=== PATIENT | male | born 1955 | race Caucasian/White ===

== ENCOUNTER → 2018-06-20 | Outpatient (CLI) | payer MEDICARE ==
[~2018-06-20] MED LIST: DIOVAN HCT 1601 EAC1 PO; DIOVAN HCT 3201 EACH PO; LISINOPRIL-HCT1 EACH PO
--- NOTE | 2018-06-20 13:42 | Diagnostic Imaging Report ---
Exam: Cervical spine complete History: Neck pain Comparison: None. Findings: The cervical spine is visualized from the skull base to the bottom of T1 on the lateral radiograph. No acute, displaced fracture or subluxation. Soft tissue, ligamentous, and spinal cord abnormalities cannot be excluded on the basis of plain radiography. Osseous fusion of the C5 and C6 vertebral bodies. C4-C5 and C6-C7 disc space narrowing, endplate sclerosis, and marginal disc osteophyte complexes. Remaining intervertebral disc spaces are comparatively well-maintained. Atlantoaxial interval is within normal limits. Prevertebral soft tissues are of normal thickness. Mild bilateral narrowing of the C4-5 foramina is suspected on the oblique radiographs. Neural foramina are otherwise patent as seen on the oblique radiographs. Partially visualized lung apices are well aerated. Impression: No acute osseous abnormalities. Osseous fusion of the C5 and C6 vertebral bodies with moderate degenerative disc disease of C4-5 and C6-7. Mild bilateral C4-5 foraminal stenosis may be further evaluated by MRI of the cervical spine there is clinical concern for radiculopathy. Signed by: Dr. Fausto Mckeon M.D. on 06/20/2018 1:39 PM
== END ==
LOC: RAD 12:35
DX: M54.2 Cervicalgia (principal)
CPT/HCPCS: 72050

== ENCOUNTER → 2018-06-22 | Outpatient (CLI) | payer MEDICARE, BC ==
--- NOTE | 2018-06-22 15:41 | Diagnostic Imaging Report ---
MRI SPINE CERVICAL WO HISTORY: Neck pain COMPARISON: Cervical spine radiographs 06/20/2018 TECHNIQUE: Sagittal T1, sagittal T2, sagittal inversion recovery, axial T2, axial GRE, and axial T1 weighted MR images of the cervical spine were obtained without intravenous contrast. DISCUSSION: Alignment: Straightening of the cervical lordosis. No scoliosis. Vertebrae: The C5 and C6 vertebral bodies are fused. No definite evidence for fractures, or neoplasm. Small nodular T1 hyperintense lesions in the T1, T2, and T3 vertebral bodies are likely benign hemangiomas. Cervicomedullary junction: No abnormalities. Spinal cord: The ventral cord is mildly indented by disc at C4-C5. The cord is otherwise normal in signal and morphology from the foramen magnum through T3-T4. Soft tissues: No signal abnormalities. Mild to moderate disc degeneration above and below the fused level is most prominent at C4-C5 and C6-C7. There are nonspecific minimal inflammatory endplate changes at C4-C5 and C6-C7. These findings are superimposed on a congenitally narrow lumbar spinal canal. C2-C3: Mild left foraminal stenosis due to uncovertebral and facet arthrosis. No significant canal or right foraminal stenosis. C3-C4: Mild to moderate canal stenosis due to posterior disc osteophyte complex and ligamentum flavum thickening. Moderate to severe right and moderate left foraminal stenoses due to uncovertebral and facet arthrosis. There is mild periarticular edema along the right C3-C4 facet joint. C4-C5: Moderate canal stenosis due to right posterior disc osteophyte complex and ligamentum flavum thickening. Severe bilateral foraminal stenoses due to uncovertebral and facet arthrosis C5-C6: Fusion level without significant canal stenosis. Mild to moderate right and mild left foraminal stenoses due to uncovertebral and facet arthrosis. C6-C7: Mild canal stenosis due to posterior disc osteophyte complex and ligamentum flavum thickening. Moderate bilateral foraminal stenoses due to uncovertebral and facet arthrosis. C7-T1: Moderate to severe right and mild left foraminal stenoses due to posterior disc osteophyte complex and facet arthrosis. No significant canal stenosis. There is prominent right-sided facet arthrosis with periarticular edema. IMPRESSION: 1. Mild to moderate multilevel disc degeneration, most prominent at C4-C5 and C6-C7 (with nonspecific minimal inflammatory endplate changes at these levels). The C5 and C6 vertebral bodies are fused. These findings are superimposed on a congenitally narrow lumbar spinal canal. 2. 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 3. Multilevel moderate to severe bilateral degenerative foraminal stenoses as described above. 4. Prominent right C7-T1 facet arthrosis with facet synovitis. Possible mild right C3-C4 facet synovitis Signed by: Dr. Ronny Salas M.D. on 06/22/2018 3:38 PM
== END ==
LOC: MRI 13:34
DX: M54.2 Cervicalgia (principal)
CPT/HCPCS: 72141

== ENCOUNTER → 2018-09-15 | Outpatient (CLI) | payer MEDICARE, BC ==
--- NOTE | 2018-09-15 10:09 | Diagnostic Imaging Report ---
Exam: Right foot radiographs-3 views; left foot radiographs-3 views; Right ankle radiographs - 3 views; left ankle radiographs - 3 views Clinical History: Bilateral foot and ankle pain. Comparison: None. Findings: Right foot and ankle: No evidence of acute fracture or malalignment. The Lisfranc alignment is maintained. There are moderate degenerative changes at the first tarsometatarsal joint and scattered mild midfoot and interphalangeal joint degenerative changes. Mild degenerative changes at the first metatarsophalangeal joint. Status post ORIF of the distal tibia with a partially visualized intramedullary ekaterina. There are 4 screws in distal tibia. The hardware appears grossly intact. The second from superior most screw extends into the medial margin of the distal fibula with a small amount of lucency surrounding the tip of the screw likely related to chronic stress changes. There is a deformity of the distal diaphyses of the fibula and tibia, consistent with prior trauma. The ankle mortise appears intact. Left foot and ankle: No evidence of acute fracture or malalignment in the foot or ankle. The Lisfranc alignment is maintained. The ankle mortise is preserved. There are moderate degenerative changes at the first tarsometatarsal joint and scattered mild midfoot and interphalangeal joint degenerative changes. Mild degenerative changes at the first metatarsophalangeal joint. There is Achilles enthesopathy with patchy lytic and sclerotic changes in the posterior calcaneous at the Achilles attachment, likely reflecting chronic stress changes. There is indeterminant well-circumscribed medullary sclerosis within the distal tibia with internal somewhat rounded lucency. Superiorly, there is a small round area of lucency. There is some cortical thickening in the distal fibula, suggestive of prior trauma. Impression: No evidence of fracture or malalignment. There is indeterminant well-circumscribed medullary sclerosis within the distal left tibia with internal lucency. Suggest correlation for prior trauma. This may represent an area of prior fixation hardware. MRI of the distal tibia/ankle may be considered for further evaluation. Left Achilles enthesopathy with likely chronic stress-related changes in the posterior calcaneus at the Achilles attachment. If there are symptoms attributable to this location, MRI of the hindfoot may be considered. 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 Post surgical changes of the right distal tibia as above. Signed by: Dr. Valente Aguilera MD on 09/15/2018 10:06 AM
== END ==
LOC: RAD 08:23
DX: M25.572 Pain in left ankle and joints of left foot (principal); M25.571 Pain in right ankle and joints of right foot

== ENCOUNTER 2018-10-18 06:35 | Inpatient (IN) | payer MEDICARE, BC ==
[~2018-10-18] VITALS: Ht 177.8 cm; Wt 79.4 kg
--- OUTSIDE RECORDS SUMMARY | 2018-10-18 06:40 | XMS REPORT ---
Author Author [facility] Address Unknown Phone Unavailable Care Team Providers Care Bottom Painter Name Role Phone ANCELMO HDEZ Unavailable Unavailable Problems This patient has no known problems. Allergies, Adverse Reactions, Alerts This patient has no known allergies or adverse reactions. Medications This patient has no known medications. Results Test Description Test Time Test Comments Text Results Atomic Results Result Comments ANKLE BILATERAL COMPLETE 2018-09-15 09:26:00 [place] [address] Patient Name: DEVEN BLAS MR #: [id number] : 1955 Age/Sex: 63/M Req #: [id number] [facility] Physician: Ordered by: ANCELMO HDEZ MD Report #: [id number] Location: [facility] Room/Bed: Procedure: [id number] DX/ANKLE BILATERAL COMPLETE Exam Date: 09/15/18 Exam Time: 0832 REPORT STATUS: Signed Exam: Right foot radiographs-3 views; left foot r adiographs-3 views; Right ankle radiographs - 3 views; left ankle radiographs - 3 views Clinical History: Bilateral foot and ankle pain. Comparison: None. Findings: Right foot and ankle: No evidence of acute fracture or malalignment. The Lisfranc alignment is maintained. There are moderate degenerative changes at the first tarsometatarsal joint and scattered mild midfoot and interphalangeal joint degenerative changes. Mild degenerative changes at the first metatarsophalangeal joint. Status post ORIF of the distal tibia with a partially visualized intramedullary ekaterina. There are 4 screws in distal tibia. The hardware appears grossly intact. The second from superior most screw extends into the medial margin of the distal fibula with a small amount of lucency surrounding the tip of the screw likely related to chronic stress changes. There is a deformity of the distal diaphyses of the fibula and tibia, consistent with prior trauma. The ankle mortise appears intact. Left foot and ankle: No evidence of acute fracture or malalignment in the foot or ankle. The Lisfranc alignment is maintained. The ankle mortise is preserved. There are moderate degenerative changes at the first tarsometatarsal joint and scattered mild midfoot and interphalangeal joint degenerative changes. Mild degenerative changes at the first metatarsophalangeal joint. There is Achilles enthesopathy with patchy lytic and sclerotic changes in the posterior calcaneous at the Achilles attachment, likely reflecting chronic stress changes. There is indete rminant well-circumscribed medullary sclerosis within the distal tibia with internal somewhat rounded lucency. Superiorly, there is a small round area of lucency. There is some cortical thickening in the distal fibula, suggestive of prior trauma. Impression: No evidence of fracture or malalignment. There is indeterminant well-circumscribed medullary sclerosis within the distal left tibia with internal lucency. Suggest correlation for prior trauma. This may represent an area of prior fixation hardware. MRI of the distal tibia/ankle may be considered for further evaluation. Left Achilles enthesopathy with likely chronic stress-related changes in the posterior calcaneus at the Achilles attachment. If there are symptoms attributable to this location, MRI of the hindfoot may be considered. 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 Post surgical changes of the right distal tibia as above. Signed by: Dr. Earl Reeves MD on 09/15/2018 10:06 AM Dictated By: EARL REEVES MD 1006 Transcribed By: NORBERT on 09/15/18 1006 COPY TO: ANCELMO HDEZ MD FOOT COMPLETE BILATERAL 2018-09-15 09:26:00 [place] [address] Patient Name: DEVEN BLAS MR #: [id number] : 1955 Age/Sex: 63/M Req #: [id number] [facility] Physician: Ordered by: ANCELMO HDEZ MD Report #: [id number] Location: [facility] Room/Bed: Procedure: [id number] DX/FOOT COMPLETE BILATERAL Exam Date: 09/15/18 Exam Time: 831 REPORT STATUS: Signed Exam: Right foot radiographs-3 views; left foot ra diographs-3 views; Right ankle radiographs - 3 views; left ankle radiographs - 3 views Clinical History: Bilateral foot and ankle pain. Comparison: None. Findings: Right foot and ankle: No evidence of acute fracture or malalignment. The Lisfranc alignment is maintained. There are moderate degenerative changes at the first tarsometatarsal joint and scattered mild midfoot and interphalangeal joint degenerative changes. Mild degenerative changes at the first metatarsophalangeal joint. Status post ORIF of the distal tibia with a partially visualized intramedullary ekaterina. There are 4 screws in distal tibia. The hardware appears grossly intact. The second from superior most screw extends into the medial margin of the distal fibula with a small amount of lucency surrounding the tip of the screw likely related to chronic stress changes. There is a deformity of the distal diaphyses of the fibula and tibia, consistent with prior trauma. The ankle mortise appears intact. Left foot and ankle: No evidence of acute fracture or malalignment in the foot or ankle. The Lisfranc alignment is maintained. The ankle mortise is preserved. There are moderate degenerative changes at the first tarsometatarsal joint and scattered mild midfoot and interphalangeal joint degenerative changes. Mild degenerative changes at the first metatarsophalangeal joint. There is Achilles enthesopathy with patchy lytic and sclerotic changes in the posterior calcaneous at the Achilles attachment, likely reflecting chronic stress changes. There is indeter minant well-circumscribed medullary sclerosis within the distal tibia with internal somewhat rounded lucency. Superiorly, there is a small round area of lucency. There is some cortical thickening in the distal fibula, suggestive of prior trauma. Impression: No evidence of fracture or malalignment. There is indeterminant well-circumscribed medullary sclerosis within the distal left tibia with internal lucency. Suggest correlation for prior trauma. This may represent an area of prior fixation hardware. MRI of the distal tibia/ankle may be considered for further evaluation. Left Achilles enthesopathy with likely chronic stress-related changes in the posterior calcaneus at the Achilles attachment. If there are symptoms attributable to this location, MRI of the hindfoot may be considered. 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 Post surgical changes of the right distal tibia as above. Signed by: Dr. Earl Reeves MD on 09/15/2018 10:06 AM Dictated By: EARL REEVES MD 1006 Transcribed By: NORBERT on 09/15/18 1006 COPY TO: ANCELMO HDEZ MD MRI SPINE CERVICAL WO 2018-06-22 15:23:00 [place] [address] Patient Name: DEVEN BLAS MR #: [id number] : 1955 Age/Sex: 62/M Req #: [id number] Adm Physician: Ordered by: ANCELMO HDEZ MD Report #: [id number] Location: MRI Room/Bed: Procedure: [id number] MRI/MRI SPINE CERVICAL WO Exam Date: Exam Time: REPORT STATUS: Signed MRI SPINE CERVICAL WO HISTORY: Neck pain COMPARISON: Ce rvical spine radiographs 06/20/2018 TECHNIQUE: Sagittal T1, sagittal T2, sagittal inversion recovery, axial T2, axial GRE, and axial T1 weighted MR images of the cervical spine were obtained without intravenous contrast. DISCUSSION: Alignment: Straightening of the cervical lordosis. No scoliosis. Vertebrae: The C5 and C6 vertebral bodies are fused. No definite evidence for fractures, or neoplasm. Small nodular T1 hyperintense lesions in the T1, T2, and T3 vertebral bodies are likely benign hemangiomas. Cervicomedullary junction: No abnormalities. Spinal cord: The ventral cord is mildly indented by disc at C4-C5. The cord is otherwise normal in signal and morphology from the foramen magnum through T3-T4. Soft tissues: No signal abnormalities. Mild to moderate disc degeneration above and below the fused level is most prominent at C4-C5 and C6-C7. There are nonspecific minimal inflammatory endplate changes at C4-C5 and C6-C7. These findings are superimpo sed on a congenitally narrow lumbar spinal canal. C2-C3: Mild left foraminal stenosis due to uncovertebral and facet arthrosis. No significant canal or right foraminal stenosis. C3-C4: Mild to moderate canal stenosis due to posterior disc osteophyte complex and ligamentum flavum thickening. Moderate to severe right and moderate left foraminal stenoses due to uncovertebral and facet arthrosis. There is mild periarticular edema along the right C3-C4 facet joint. C4-C5: Moderate canal stenosis due to right posterior disc osteophyte complex and ligamentum flavum thickening. Severe bilateral foraminal stenoses due to uncovertebral and facet arthrosis C5- C6: Fusion level without significant canal stenosis. Mild to moderate right and mild left foraminal stenoses due to uncovertebral and facet arthrosis. C6-C7: Mild canal stenosis due to posterior disc osteophyte complex and ligamentum flavum thickening. Moderate bilateral foraminal stenoses due to uncovertebral and facet arthrosis. C7-T1: Moderate to severe right and mild left foraminal stenoses due to posterior disc osteophyte complex and facet arthrosis. No significant canal stenosis. There is prominent right-sided facet arthrosis with periarticular edema. IMPRESSION: 1. Mild to moderate multilevel disc degeneration, most prominent at C4-C5 and C6-C7 (with nonspecific minimal inflammatory endplate changes at these levels). The C5 and C6 vertebral bodies are fused. These findings are superimposed on a congenitally narrow lumbar spinal canal. 2. 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 3. Multilevel moderate to severe bilateral degenerative foraminal stenoses as described above. 4. Prominent right C7-T1 facet arthrosis with facet synovitis. Possible mild right C3-C4 facet synovitis Signed by: Dr. Ronny Salas M.D. on 06/22/2018 3:38 PM Dictated By: RONNY SALAS MD 37 Transcribed By: NORBERT on 06/22/188 COPY TO: ANCELMO HDEZ MD CERVICAL SPINE 4 OR 5 VIEWS 2018-06-20 13:36:00 [place] [address] Patient Name: DEVEN BLAS MR #: [id number] : 1955 Age/Sex: 62/M Req #: [id number] Adm Physician: Ordered by: ANCELMO HDEZ MD Report #: [id number] Location: [facility] Room/Bed: Procedure: [id number] DX/CERVICAL SPINE 4 OR 5 VIEWS Exam Date: 06/20/18 Exam Time: 1305 REPORT STATUS: Signed Exam: Cervical spine complete History: Neck pain Comparison: None. Findings: The cervical spine is visualized from the skull base to the bottom of T1 on the lateral radiograph. No acute, displaced fracture or subluxation. Soft tissue, ligamentous, and spinal cord abnormalities cannot be excluded on the basis of plain radiography. Osseous fusion of the C5 and C6 vertebral bodies. C4-C5 and C6-C7 disc space narrowing, endplate sclerosis, and marginal disc osteophyte complexes. Remaining intervertebral disc spaces are comparatively well-maintained. Atlantoaxial interval is within normal limits. Prevertebral soft tissues are of normal thickness. Mild bilateral narrowing of the C4-5 foramina is suspected on the oblique radiographs. Neural foramina are otherwise patent as seen on the oblique radiographs. Partially visualized lung apices are well aerated. Impression: No acute osseous abnormalities. Osseous fusion of the C5 and C6 vertebral bodies with moderate degenerative disc disease of C4-5 and C6-7. Mild bilateral C4-5 foraminal stenosis may be further evaluated by MRI of the cervical spine there is clinical concern for radiculopathy. Signed by: Dr. Heydi Márquez M.D. on 06/20/2018 1:39 PM Dictated By: HEYDI MÁRQUEZ MD 1330 Transcribed By: NORBERT on 06/20/18 1331 COPY TO: ANCELMO HDEZ MD
[2018-10-18] MEDS ORDERED: ASPIRIN 325 MG TAB PO ONE (07:15)
--- NOTE | 2018-10-18 07:32 | Diagnostic Imaging Report ---
Exam: Head CT without contrast History: Difficulty talking, unable to move right arm Comparison studies: No prior exams are available on the PACS at the time of comparison. Technique: Axial images were obtained from the skull base to the vertex. Coronal and sagittal images reconstructed from the axial data. Dose modulation, iterative reconstruction, and/or weight based adjustment of the mA/kV was utilized to reduce the radiation dose to as low as reasonably achievable. Radiation dose: Total DLP: 921 mGy*cm. Estimated effective dose: DLP x 0.015 Intravenous contrast: None Findings: Scalp: No abnormalities. Bones: No fractures, blastic or lytic lesions. Brain sulci: Mildly prominent.. Ventricles: Normal in size and configuration. No hydrocephalus. Extra-axial spaces: No masses, no fluid collection. Parenchyma: No mass, acute hemorrhage or acute cortical vascular insults. A few scattered hypodensities in the supratentorial white matter are nonspecific but most compatible with chronic small vessel ischemic changes. There are small chronic left subinsular and left mid cerebellar lacunar insults. Sellar/suprasellar region: No abnormalities. Craniocervical junction: Patent foramen magnum. No Chiari one malformation. Incidental findings: Atherosclerotic calcifications in the carotid siphons. IMPRESSION: No acute intracranial abnormalities. Specifically, no mass, acute hemorrhage or acute cortical infarct. Chronic findings: 1. Mild generalized volume loss. 2. Mild chronic microvascular ischemic changes with small chronic left subinsular and left cerebellar lacunar infarct. Signed by: Dr. Fausto Huber M.D. on 10/18/2018 7:29 AM
[2018-10-18 07:35] LABS: BASOPHILS # (AUTO) 0.1 (0.0-0.1); BASOPHILS % 0.9 % (0.0-1.0); EOSINOPHILS # (AUTO) 0.1 (0.0-0.4); EOSINOPHILS % 1.3 % (0.0-6.0); HEMATOCRIT 39.9 % (38.2-49.6); HEMOGLOBIN 13.7 g/dL (14.0-18.0); LYMPHOCYTES # (AUTO) 1.5 (1.0-3.2); LYMPHOCYTES % 22.8 % (18.0-39.1); MEAN CORPUSCULAR HEMOGLOBIN 30.8 pg (28-32); MEAN CORPUSCULAR HGB CONC 34.3 g/dL (31-35); MEAN CORPUSCULAR VOLUME 89.7 fL (81-99); MONOCYTES # (AUTO) 0.4 (0.2-0.8); MONOCYTES % 6.3 % (4.4-11.3); NEUTROPHILS # (AUTO) 4.4 (2.1-6.9); NEUTROPHILS % 68.2 % (38.7-80.0); PLATELET COUNT 223 x10e3/uL (140-360); RED BLOOD COUNT 4.45 x10e6/uL (4.3-5.7)
--- NOTE | 2018-10-18 07:54 | Diagnostic Imaging Report ---
EXAM: CHEST SINGLE (PORTABLE), AP Portable DATE: 10/18/2018 Time stamp on exam: 7:15 AM INDICATION: Possible stroke COMPARISON: None FINDINGS: LINES/TUBES: None LUNGS: No consolidations or edema. PLEURA: No effusions or pneumothorax. HEART AND MEDIASTINUM: Normal size and contour. BONES AND SOFT TISSUES: No acute findings. IMPRESSION: No acute thoracic abnormality. Signed by: Dr. Franklin Bhandari DO on 10/18/2018 7:50 AM
[2018-10-18 08:21] LABS: ALANINE AMINOTRANSFERASE 19 IU/L (0-55); ALBUMIN 3.7 g/dL (3.5-5.0); ALBUMIN/GLOBULIN RATIO 1.4 (0.8-2.0); ALKALINE PHOSPHATASE 49 IU/L (40-150); ANION GAP 13.6 mmol/L (8-16); BLOOD UREA NITROGEN 13 mg/dL (7-26); BUN/CREATININE RATIO 15 (6-25); CALCIUM 9.2 mg/dL (8.4-10.2); CARBON DIOXIDE 25 mmol/L (22-29); CHLORIDE 98 mmol/L (98-107); CREATININE, SERUM 0.89 mg/dL (0.72-1.25); EST GLOMERULAR FILTRATION RATE > 60 ML/MIN (60-); GLUCOSE 113 mg/dL (74-118); POTASSIUM 4.6 mmol/L (3.5-5.1); SODIUM 132 mmol/L (136-145)
[2018-10-18] MEDS ORDERED: ONDANSETRON HCL INJ 2MG/ML 2ML 2 MG/ML VIAL IV PRN (09:00)
[2018-10-18] MEDS: SODIUM CHLORIDE 0.9% 1000ML 1,000 ML IV SCH ×2 (09:14→17:56)
--- NOTE | 2018-10-18 09:24 | NUR ---
pt placed on wale bed
--- NOTE | 2018-10-18 10:50 | NUR ---
Dr Cristy Ding at pt bedside
--- NOTE | 2018-10-18 10:56 | Diagnostic Imaging Report ---
Exam: Brain MRI without IV contrast History: Stroke, TIA, difficulty speaking, right arm weakness. Comparison studies: Head CT 10/18/2018. Technique: Sagittal and axial T2 FS, axial DWI, axial T2*GRE, axial T1 FLAIR and axial coronal T2 FLAIR. Intravenous contrast: None Findings: Scalp: Normal in signal. No masses. Bone marrow: Normal in signal intensity. Brain sulci: Appropriate for age. Ventricles: Normal in size. No hydrocephalus. Extra axial spaces: No mass, no fluid collection. Parenchyma: Small focal restricted diffusion with associated subtle increased T2 FLAIR hyperintensity in the left lateral frontal molina radiata compatible with acute ischemia. No mass or hemorrhage. A few scattered small T2 FLAIR hyperintense foci in the supratentorial white matter are nonspecific but most compatible with chronic microvascular ischemic changes. Small chronic left cerebellar and left subinsular lacunar infarcts are unchanged. Suprasellar region: No abnormalities. Craniocervical junction: Patent foramen magnum. No Chiari malformation. Vessels: Normal flow-voids in the arteries and sinuses. IMPRESSION: 1. Small focal nonhemorrhagic acute ischemia in the left lateral frontal molina radiata. 2. No other changes from the prior brain MRI of 04/24/2015. 3. Mild chronic microvascular ischemic changes with small chronic left cerebellar and left subinsular lacunar infarcts. Findings discussed with Dr. Clemons 01/19/1990 10/18/2018. Signed by: Dr. Fausto Huber M.D. on 10/18/2018 10:53 AM
--- NOTE | 2018-10-18 11:39 | NUR ---
Recvd patient from ER, AAOx3, Resp even and unlabored, not in any distress denies any pain, on Tele, at bed side, call light in reach. continue monitoring
[2018-10-18 12:12] VITALS: BP 139/79
--- NOTE | 2018-10-18 12:25 | NUR ---
Notified MRI result to Dr Gonzáles, she said she aware about and will come see the patient
[2018-10-18 12:41] VITALS: BP 139/79
--- NOTE | 2018-10-18 12:55 | NUR ---
DISCUSSED IN BARRIER ROUNDS DR CHRISTIAN CONSULTED
--- NOTE | 2018-10-18 13:25 | NUR ---
Visit made by the Spiritual Care Department Pastoral Visitor, Isabel Banks. PV provided pastoral presence, prayer, hospitality, and supportive listening. Pastoral Visitor informed pt/family of the scope of [employer] and availability. MARYLIN ZEE Selling Manager Spiritual Care Department O: [phone] Pager: [phone] ([phone] number calling from)
[2018-10-18 16:03] LABS: CREATINE KINASE MB 4.5 ng/mL (0-5.0)
[2018-10-18 16:42] VITALS: BP 139/92
--- NOTE | 2018-10-18 19:01 | NUR ---
Received report from day nurse, patient is resting comfortably in bed. bed is in lowest position and call horton is within reach. will continue to monitor patient.
[2018-10-18 20:08] VITALS: BP 143/100
[2018-10-18 20:09] VITALS: BP 143/100
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
[2018-10-19] MEDS: SODIUM CHLORIDE 0.9% 1000ML 1,000 ML IV SCH ×2 (00:54→08:54)
[2018-10-19 01:15] VITALS: BP 133/82
--- NOTE | 2018-10-19 01:15 | NUR ---
PATIENT IS SOUNDLY ASLEEP, NO RESPIRATORY DISTRESS OBSERVED AND CALL LIGHT WITHIN EASY REACH.
[2018-10-19 04:40] VITALS: BP 133/92
[2018-10-19 05:38] LABS: BASOPHILS # (AUTO) 0.1 (0.0-0.1); BASOPHILS % 1.2 % (0.0-1.0); EOSINOPHILS # (AUTO) 0.3 (0.0-0.4); EOSINOPHILS % 3.9 % (0.0-6.0); HEMATOCRIT 39.9 % (38.2-49.6); HEMOGLOBIN 13.7 g/dL (14.0-18.0); LYMPHOCYTES % 30.2 % (18.0-39.1); MEAN CORPUSCULAR HEMOGLOBIN 30.9 pg (28-32); MEAN CORPUSCULAR HGB CONC 34.3 g/dL (31-35); MEAN CORPUSCULAR VOLUME 89.9 fL (81-99); MONOCYTES # (AUTO) 0.7 (0.2-0.8); MONOCYTES % 9.7 % (4.4-11.3); NEUTROPHILS # (AUTO) 3.7 (2.1-6.9); NEUTROPHILS % 54.6 % (38.7-80.0); PLATELET COUNT 219 x10e3/uL (140-360); RED BLOOD COUNT 4.44 x10e6/uL (4.3-5.7); RED CELL DISTRIBUTION WIDTH 12.9 % (11.7-14.4)
[2018-10-19 05:47] LABS: INR 0.91; PARTIAL THROMBOPLASTIN TIME 27.5 seconds (23.8-35.5); PROTHROMBIN TIME 12.7 seconds (11.9-14.5)
[2018-10-19 05:53] LABS: ANION GAP 10.3 mmol/L (8-16); BLOOD UREA NITROGEN 11 mg/dL (7-26); BUN/CREATININE RATIO 11 (6-25); CALCIUM 8.6 mg/dL (8.4-10.2); CARBON DIOXIDE 29 mmol/L (22-29); CHLORIDE 103 mmol/L (98-107); CHOL/HDL RATIO 2.5 (3.9-4.7); CHOLESTEROL 201 MD/DL (0-199); CREATININE, SERUM 0.96 mg/dL (0.72-1.25); EST GLOMERULAR FILTRATION RATE > 60 ML/MIN (60-); GLUCOSE 96 mg/dL (74-118); HDL CHOLESTEROL 80 MG/DL (40-60); LDL CHOLESTEROL 104 MG/DL (60-130); POTASSIUM 4.3 mmol/L (3.5-5.1); SODIUM 138 mmol/L (136-145); TRIGLYCERIDES 83 MG/DL (0-149)
[2018-10-19 07:09] LABS: CREATINE KINASE MB 2.1 ng/mL (0-5.0)
[2018-10-19] MEDS ORDERED: FAMOTIDINE 20 MG TAB PO SCH (07:30)
[2018-10-19 08:19] VITALS: BP 142/98
[2018-10-19] MEDS ORDERED: ASPIRIN 325 MG TAB EC PO SCH (09:00)
[2018-10-19 09:17] VITALS: BP 142/98
[2018-10-19] MEDS ORDERED: VALSARTAN 160 MG TAB PO SCH (11:29)
[2018-10-19] MEDS ORDERED: HYDROCHLOROTHIAZIDE 25 MG TAB PO SCH (11:29)
[2018-10-19] MEDS ORDERED: ONDANSETRON HCL 4 MG ORAL DISINTEGRATING TAB PO PRN (12:00)
--- NOTE | 2018-10-19 12:01 | NUR ---
patient refusing BP meds. instructed to the increased risk of another stroke. patient becoming aggitated since informed that he has been converted to inpatient.
[2018-10-19 12:03] VITALS: BP 156/109
[2018-10-19] MEDS ORDERED: ENOXAPARIN SOD INJ 40 MG/0.4 ML SYR SC SCH (17:45)
[2018-10-20] MEDS ORDERED: NON-FORMULARY MEDICATION (Valsartan/Hydrochlorothiazide (Diovan Hct 320-25 Mg Tablet) 1 TA PO SCH (09:00)
--- NOTE | 2018-11-23 23:32 | Discharge Summary ---
CHIEF COMPLAINT: Sudden onset slurred speech. FINAL DIAGNOSES: Acute right cerebrovascular accident, hypertension, uncontrolled and hepatitis C. HISTORY OF PRESENT ILLNESS: This is a 63-year-old male with a known history of hypertension, hepatitis C, brought to the ER from home after having a sudden onset of slurred speech with left arm and leg weakness lasting until arrival to the ER. There was no chest pain or shortness of breath. No visual disturbances. He was evaluated in the ER. Studies were performed. Admission was made regarding the complaints of slurred speech, left arm and leg weakness, findings of acute right CVA per MRI, uncontrolled hypertension, history of hepatitis C. With admission, the patient will be undergoing neurological checks and requesting neurological followup. Home medications will be continuing as well. The patient was reviewed by Neurology, Dr. Gonzáles regarding these neuro complaints and neuro findings on the CT and following neuro evaluation and review. Impression was stroke. Over the course, the patient has recovered quickly from the stroke. His neurologic examination is currently nonfocal. Awaiting review of lipid panel with a hemoglobin A1c. Recommend continuing aspirin 325 for stroke prophylaxis, allow permissive hypertension from 24 to 48 hours, status post stroke. Antihypertensive medications may be resumed on October 19. Blood pressure goal prior to discharge is less than 140/90. Cholesterol goal will be less than 200. He will be on GI prophylaxis with Pepcid 20 mg by mouth twice a day. Underwent workup, x-rays, blood work, was in IMCU on a cardiac diet, was resting comfortably, was in no acute distress, was on IV fluids, was placed on his BP medications. His CVA issues resolved rapidly and he was cleared for discharge and needed to be discharged home in stable condition. It was noted that his BP was 156/109 at one particular window of time on his date of admission. IMAGING: Chest shows no acute thoracic abnormality. Brain CT shows no acute intracranial abnormalities, specifically no mass, acute hemorrhage or acute cortical infarct. There were chronic findings of mild generalized volume loss, microvascular ischemic changes with small chronic left subinsular and left cerebellar lacunar infarct. MRI of brain shows small focal nonhemorrhagic acute ischemia in the left lateral frontal molina radiata, mild chronic findings. Carotid Doppler studies reveal right common carotid artery revealing findings of mild atherosclerotic plaques, right internal carotid artery, mild stenosis noted, right bulb, mild atherosclerotic plaques noted, left common carotid artery, mild atherosclerotic plaques noted; left bulb, the same; left internal carotid artery, mild stenosis noted. Conclusion, transient ischemic attack. LABORATORY STUDIES: Reveals a CBC to be within normal limits. Chemistries, initial electrolytes were stable. Kidney function is stable. Glucose stable. Cardiac enzymes stable. Followup studies continued to reveal two more sets of cardiac enzymes resulting stability. Cholesterol noted to be 201. The patient has responded well to care. His condition resolved rapidly. It was noted the patient was refusing BP medications and he was instructed that this would bring about increased risk of another stroke. The patient was discharged home the same date of admission, stable, but guarded condition. With discharge, he will continue on his current diet. No equipments or supplies are necessary. No drains or Ott was needed. Activity level as directed by me as well as by Dr. Gonzáles. The patient will be returning back to my office in 2 to 3 weeks for followup as well as for further management of his BP. He will be taking Diovan 160/25 one tablet daily and Diovan 320/25 one tablet p.o. daily. If the patient develops recurrence of similar symptoms, he will be reporting back to the ER. Dictated by VIOLETA Ferreira Willy Ding MD CC/DM /[id number]
== END 2018-10-19 13:55 | disposition home or self-care (01) | DRG 65 ==
LOC: ER 06:35 → ERHOLD 08:54 → IMCU 11:38 → OBSVTOIN 10-19 11:05
DX: I63.9 Cerebral infarction, unspecified (principal); I69.351 Hemiplegia and hemiparesis following cerebral infarction affecting right dominant side; I16.0 Hypertensive urgency; B19.20 Unspecified viral hepatitis C without hepatic coma; I10 Essential (primary) hypertension; I69.392 Facial weakness following cerebral infarction; I69.320 Aphasia following cerebral infarction
CPT/HCPCS: 36415; 70450; 70551; 71045; 80048; 80053; 80061; 82550; 82553; 83036; 84484; 85025; 85610; 85730; 93005; 93306; 93880; 99284; G0378; J1650; J7030

== ENCOUNTER → 2019-10-02 | Outpatient (CLI) | payer MEDICARE, BC ==
--- NOTE | 2019-10-02 13:51 | Diagnostic Imaging Report ---
EXAMINATION: MRI of the cervical spine without contrast HISTORY: Neck pain worsening for the last 2 years. COMPARISON: Cervical spine x-ray 06/20/2018 TECHNIQUE: Sagittal T1, T2, STIR; axial T2, gradient echo. FINDINGS: Curvature: Normal lordosis. Vertebrae: No evidence of neoplasm, infection, or fracture. Foramen magnum: No mass, Chiari malformation, or basilar invagination. Spinal Cord: Normal size and signal intensity. Soft Tissues: Unremarkable. Degenerative changes: C1-C2: Unremarkable. C2-C3: Prominent facet arthrosis mainly on the left. Mild left foramina narrowing. C3-C4: Disc osteophyte complex formation, bilateral uncovertebral and facet arthrosis. Severe bilateral foraminal stenosis. Moderate spinal canal stenosis. C4-C5: Disc osteophyte complex formation asymmetric to the right, bilateral uncovertebral and facet arthrosis. Severe spinal canal and bilateral foraminal stenoses. Complete effacement of the surrounding spinal cord CSF, without associated abnormal signal in the cord. C5-C6: Status post ACDF with solid interbody fusion. Moderate right foraminal narrowing. No canal or left foraminal stenosis. C6-C7: Disc osteophyte complex formation asymmetric to the left, bilateral uncovertebral facet arthrosis. Mild spinal canal and moderately severe foraminal stenosis worst on the left. C7-T1: Bilateral facet arthrosis. Mild bilateral foraminal narrowing. No spinal canal stenosis. IMPRESSION: 1. Severe degenerative spinal canal and bilateral foraminal stenosis at C4-C5. 2. Moderate degenerative spinal canal stenosis at C3-C4 and mild at C6-C7. 3. Severe degenerative foraminal stenosis bilaterally at C3-C4, moderate on the right at C5-C6 and moderately severe bilaterally at C6-C7. 4. No spinal cord or abnormal signal. Signed by: Dr. Shikha Simmons M.D. on 10/02/2019 1:47 PM
== END ==
LOC: MRI 07:43
DX: M54.12 Radiculopathy, cervical region (principal); M54.2 Cervicalgia; R20.0 Anesthesia of skin; R29.898 Other symptoms and signs involving the musculoskeletal system
CPT/HCPCS: 72141

== ENCOUNTER 2019-11-23 05:15 | Observation (INO) | payer MEDICARE, BC, OTHER ==
[2019-11-20 13:03] LABS: BASOPHILS # (AUTO) 0.1 (0.0-0.1); EOSINOPHILS # (AUTO) 0.2 (0.0-0.4); EOSINOPHILS % 3.3 % (0.0-6.0); HEMATOCRIT 37.5 % (38.2-49.6); HEMOGLOBIN 13.1 g/dL (14.0-18.0); LYMPHOCYTES # (AUTO) 1.7 (1.0-3.2); MEAN CORPUSCULAR HEMOGLOBIN 30.2 pg (28-32); MEAN CORPUSCULAR HGB CONC 34.9 g/dL (31-35); MEAN CORPUSCULAR VOLUME 86.4 fL (81-99); MONOCYTES # (AUTO) 0.6 (0.2-0.8); MONOCYTES % 8.4 % (4.4-11.3); NEUTROPHILS # (AUTO) 4.6 (2.1-6.9); PLATELET COUNT 161 x10e3/uL (140-360); RED BLOOD COUNT 4.34 x10e6/uL (4.3-5.7); RED CELL DISTRIBUTION WIDTH 12.8 % (11.7-14.4)
[2019-11-20 13:16] LABS: INR 0.92; PARTIAL THROMBOPLASTIN TIME 25.8 seconds (23.8-35.5); PROTHROMBIN TIME 12.8 seconds (11.9-14.5)
[2019-11-20 13:20] LABS: ANION GAP 14.1 mmol/L (8-16); BLOOD UREA NITROGEN 12 mg/dL (7-26); BUN/CREATININE RATIO 13 (6-25); CALCIUM 8.6 mg/dL (8.4-10.2); CARBON DIOXIDE 25 mmol/L (22-29); CHLORIDE 96 mmol/L (98-107); EST GLOMERULAR FILTRATION RATE > 60 ML/MIN (60-); GLUCOSE 86 mg/dL (74-118); POTASSIUM 4.1 mmol/L (3.5-5.1); SODIUM 131 mmol/L (136-145)
--- NOTE | 2019-11-20 13:34 | Diagnostic Imaging Report ---
EXAMINATION: CHEST 2 VIEWS INDICATION: Pre-operative COMPARISON: None FINDINGS: LINES/TUBES:None LUNGS:The lungs are well-inflated. No focal consolidation or pulmonary edema. PLEURA:No pleural effusion or pneumothorax. MEDIASTINUM:The cardiomediastinal silhouette appears normal in size and shape. Atherosclerotic calcifications of the thoracic aorta. BONES/SOFT TISSUES:No acute osseous injury. ABDOMEN:No free air under the diaphragm. IMPRESSION: No focal pneumonia or pulmonary edema. Signed by: Geovanni Toro MD on 11/20/2019 1:31 PM
[2019-11-23] MEDS ORDERED: CEFAZOLIN SOD 1 GM/NS 50ML 100 ML IV ONE (06:28)
[2019-11-23] MEDS ORDERED: HYDROCHLOROTHIA25 MG PO (06:43)
[2019-11-23] MEDS ORDERED: LIDOCAINE 1% W/EPINEPHRINE 20 ML VIAL ONE (06:44)
[2019-11-23] MEDS ORDERED: BACITRACIN 50,000 UNIT VIAL ONE (06:45)
[2019-11-23] MEDS ORDERED: THROMBIN FOR SOLN 5,000 UNIT VIAL ONE (06:45)
[2019-11-23] MEDS ORDERED: IBUPROFEN 800MG/ 200ML 200 ML IV ONE (07:01)
[2019-11-23] MEDS ORDERED: ACETAMINOPHEN 1000 MG/100 ML 100 ML IV ONE (07:01)
[2019-11-23] MEDS ORDERED: LIDOCAINE HCL (LTA) 4 ML SOLN ONE ×2 (07:02→07:32)
[2019-11-23] MEDS ORDERED: VALSARTAN PO SCH (09:00)
[2019-11-23] MEDS ORDERED: [UNRECOGNIZED DRUG - OTHER] PO SCH (09:00)
[2019-11-23] MEDS ORDERED: HYDROCHLOROTHIAZIDE 25 MG TAB PO SCH (09:00)
[2019-11-23] MEDS ORDERED: MAGNESIUM/ALUMINUM/SIMETHICONE 30 ML UDC PO PRN (09:00)
[2019-11-23] MEDS ORDERED: CEPACOL SORE THROAT LOZENGES PO PRN (09:00)
[2019-11-23] MEDS ORDERED: HYDROCHLOROTHIAZIDE PO SCH (09:00)
[2019-11-23] MEDS ORDERED: OXYCODONE/ACETAMINOPHEN 5-325 1 EACH TABLET PO PRN (09:00)
[2019-11-23] MEDS ORDERED: ACETAMINOPHEN 325 MG TAB PO PRN (09:00)
[2019-11-23] MEDS ORDERED: HYDROMORPHONE 2MG/ML 2 MG/ML ML IV PRN (09:00)
[2019-11-23] MEDS ORDERED: CARISOPRODOL 350 MG TAB PO PRN (09:00)
[2019-11-23] MEDS ORDERED: LACTATED RINGER'S 1,000 ML IV SCH (09:00)
[2019-11-23] MEDS ORDERED: PROMETHAZINE HCL (IM) 25 MG/ML VIAL IM PRN (09:00)
[2019-11-23] MEDS ORDERED: MORPHINE SULFATE 5 MG/ML VIAL IM PRN (09:00)
[2019-11-23] MEDS ORDERED: ONDANSETRON HCL INJ 2MG/ML 2ML 2 MG/ML VIAL IV PRN (09:00)
--- OUTSIDE RECORDS SUMMARY | 2019-11-23 09:48 | XMS REPORT | Continuity of Care Document ---
Author Author [facility] t Organization [facility] Address [address] [place] [address] Phone Unavailable Care Team Providers Care Product Support Rep Name Role Phone ANCELMO HDEZ MD PCP MARK ANTHONY IBARRA Attphys Unavailable HDEZ, SOUHEIL Attphys Unavailable HDEZ, YUSUFIL Admphys Unavailable Payers Payer Name Policy Type Policy Number Effective Date Expiration Date Cristy florez Medicare A & B [id number] 2018 00:00:00 [facility] [id number] 2018 00:00:00 [facility] Problems Condition Name Condition Details Condition Category Status Onset Date Resolution Date Last Treatment Date Treating Clinician Comments Source Transient cerebral ischemia TIA (transient ischemic attack) Problem Active 2015-04-24 00:00:00 [facility] Allergies, Adverse Reactions, Alerts This patient has no known allergies or adverse reactions. Medications Ordered Medication Name Filled Medication Name Start Date Stop Da te Current Medication? Ordering Clinician Indication Dosage Frequency Signature (SIG) Comments Components Source Valsartan/Hydrochlorothiazide (Diovan Hct 160-25 Mg Ta blet) 1 Each Tablet Valsartan/Hydrochlorothiazide (Diovan Hct 160-25 Mg Tablet) 1 Each Tablet Yes 1 Daily [facility] Valsartan/Hydrochlorothiazide (Diovan Hct 320-25 Mg Ta blet) 1 Each Tablet Valsartan/Hydrochlorothiazide (Diovan Hct 320-25 Mg Tablet) 1 Each Tablet Yes 1 Daily [facility] Procedures Procedure Date / Time Performed Performing Clinician Florinda saldivar Computed tomography of brain without radiopaque contrast 201 12-24-01 00:00:00 SANJEEV SANTOS [facility] Magnetic resonance imaging of brain without contrast 2018-10 00:00:00 KADEN CLEMONS [facility] Magnetic resonance imaging of cervical spine without c ontrast 2018-06-22 00:00:00 ANCELMO HDEZ [facility] Encounters Start Date/Time End Date/Time Encounter Type Admission Type [facility] Care Department Encounter ID Source 2018-10-19 11:05:00 2018-10-19 13:55:00 Discharged Inpatient 1 HDEZ, [facility] [id number] [facility] 2018-09-15 08:23:00 2018-09-15 08:23:00 Registered Clinic 3 HDEZ [facility] [id number] [facility] 2018-06-22 13:34:00 2018-06-22 13:34:00 Registered Clinic 3 [facility] [id number] [facility] 2018-06-20 12:35:00 2018-06-20 12:35:00 Registered Clinic 3 [facility] [id number] [facility] Results Test Description Test Time Test Comments Results Result Comments Source CHEST 2 VIEWS 2019-11-20 13:31:00 [place] [address] Patient Name: DEVEN BLAS MR #: [id number] : 1955 Age/Sex: 64/M Req #: [id number] Adm Physician: Ordered by: MARK ANTHONY IBARRA MD Report #: [id number] Location: OR Room/Bed: Procedure: [id number] DX/CHEST 2 VIEWS Exam Date: 11/20/19 Exam Time: 1319 REPORT STATUS: Signed EXAMINATION: CHEST 2 VIEWS INDICATION: Pre-operative COMPARISON: None FINDINGS: LINES/TUBES:None LUNGS:The lungs are well-inflated. No focal consolidation or pulmonary edema. PLEURA:No pleural effusion or pneumothorax. MEDIASTINUM:The cardiomediastinal silhouette appears normal in size and shape. Atherosclerotic calcifications of the thoracic aorta. BONES/SOFT TISSUES:No acute osseous injury. ABDOMEN:No free air under the diaphragm. IMPRESSION: No focal pneumonia or pulmonary edema. Signed by: Roxana Ventura MD on 11/20/2019 1:31 PM Dictated By: ROXANA VENTURA MD 1331 Transcribed By: NORBERT on 11/20/19 1331 COPY TO: MARK ANTHONY IBARRA MD MRI SPINE CERVICAL WO 2019-10-02 09:42:00 [place] [address] Patient Name: DEVEN BLAS MR #: [id number] : 1955 Age/Sex: 64/M Req #: [id number] [facility] Physician: Ordered by: ANCELMO HDEZ MD Report #: [id number] Location: MRI Room/Bed: Procedure: [id number] MRI/MRI SPINE CERVICAL WO Exam Date: Exam Time: REPORT STATUS: Signed EXAMINATION: MRI of the cervical spine without contrast HISTORY: Neck pain worsening for the last 2 years. COMPARISON: Cervical spine x-ray 06/20/2018 TECHNIQUE: Sagittal T1, T2, STIR; axial T2, gradient echo. FINDINGS: Curvature: Normal lordosis. Vertebrae: No evidence of neoplasm, infection, or fracture. Foramen magnum: No mass, Chiari malformation, or basilar invagination. Spinal Cord: Normal size and signal intensity. Soft Tissues: Unremarkable. Degenerative changes: C1-C2: Unremarkable. C2-C3: Prominent facet arthrosis mainly on the left. Mild left foramina narrowing. C3-C4: Disc osteophyte complex formation, bilateral uncovertebral and facet arthrosis. Severe bilateral foraminal stenosis. Moderate spinal canal stenosis. C4-C5: Disc osteophyte complex formation asymmetric to the right, bilateral uncovertebral and facet arthrosis. Severe spinal canal and bilateral foraminal stenoses. Complete effacement of the surrounding spinal cord CSF, without associated abnormal signal in the cord. C5-C6: Status post ACDF with solid interbody fusion. Moderate right foraminal narrowing. No canal or left foraminal stenosis. C6-C7: Disc osteophyte complex formation asymmet nica to the left, bilateral uncovertebral facet arthrosis. Mild spinal canal and moderately severe foraminal stenosis worst on the left. C7-T1: Bilateral facet arthrosis. Mild bilateral foraminal narrowing. No spinal canal stenosis. IMPRESSION: 1. Severe degenerative spinal canal and bilateral foraminal stenosis at C4-C5. 2. Moderate degenerative spinal canal stenosis at C3-C4 and mild at C6-C7. 3. Severe degenerative foraminal stenosis bilaterally at C3-C4, moderate on the right at C5-C6 and moderately severe bilaterally at C6-C7. 4. No spinal cord or abnormal signal. Signed by: Dr. Karolyn Simmons M.D. on 10/02/2019 1:47 PM Dictated By: KAROLYN SIMMONS MD 1347 Transcribed By: NORBERT on 10/02/19 1347 COPY TO: ANCELMO HDEZ MD Creatine Kinase MB 2018-10-19 07:16:00 Test Item Creatine Kinase MB (test code = 44608-3) 2.10 0-5.0 [facility]Troponin L2763-06-27 07:16:00* Test Item Value Reference Range Interpretation Comments Troponin I (test code = IDU9677) 0.010 0-0.300 [facility]ownCreatine Ycckhs8494-55-35 07:06:00* Test Item Value Reference Range Interpretation Comments Creatine Kinase (test code = 2157-6) 142 30-200 [facility]ownHemoglobin A1c Azhdlqw1975-18-51 06:17:00 * Test Item Value Reference Range Interpretation Comments Hemoglobin A1c Percent (test code = Hemoglobin A1c Percent) 5.4 4.0-7.0 [facility]odium Jrlry6380-30-71 05:54:00* Test Item Value Reference Range Interpretation Comments Sodium Level (test code = 2951-2) 138 136-145 [facility]ownPotassium Ufjvs8565-81-00 05:54:00* Test Item Value Reference Range Interpretation Comments Potassium Level (test code = 2823-3) 4.3 3.5-5.1 [facility]ownChloride Qdxmx3537-61-21 05:54:00* Test Item Value Reference Range Interpretation Comments Chloride Level (test code = 2075-0) 103 98-107 [facility]ownCarbon Dioxide Ivkbc7634-79-25 05:54:00* Test Item Value Reference Range Interpretation Comments Carbon Dioxide Level (test code = 2028-9) 29 22-29 [facility] UptownAnion Qzw9241-84-65 05:54:00* Test Item Value Reference Range Interpretation Comments Anion Gap (test code = 62665-9) 10.3 8-16 [facility] UptownBlood Urea Awtddgjr7462-39-10 05:54:00* Test Item Value Reference Range Interpretation Comments Blood Urea Nitrogen (test code = 3094-0) 11 7-26 [facility]ownCreatinine2019-07-03 05:54:00* Test Item Value Reference Range Interpretation Comments Creatinine (test code = 2160-0) 0.96 0.72-1.25 [facility]ownBUN/Creatinine Ntzmg0652-49-66 05:54:00* Test Item Value Reference Range Interpretation Comments BUN/Creatinine Ratio (test code = 3097-3) 11 10-11 [facility] UptownEstimat Glomerular Filtration Rate 2018-10-19 05:54:00* Test Item Value Reference Range Interpretation Comments Estimat Glomerular Filtration Rate (test code = 363663695) > 60 >60 Ranges were taken from the National Kidney Disease Education Program and the [facility] literature.Reference ranges:60 or greater: Lrakhf13-85 ( for 3 consecutive months): Chronic kidney disease 15 or less: Kidney failureBaylor Scott & White Medical Center – UptownGlucose Xfuur3819-72-77 05:54:00* Test Item Value Reference Range Interpretation Comments Glucose Level (test code = BXE6012) 96 74-118 [facility]ownCalcium Aakds0782-61-24 05:54:00* Test Item Value Reference Range Interpretation Comments Calcium Level (test code = 71887-0) 8.6 8.4-10.2 [facility]ownTriglycerides Eakmg1842-55-00 05:54:00* Test Item Value Reference Range Interpretation Comments Triglycerides Level (test code = 2571-8) 83 0-149 [facility]ownCholesterol Pennv9938-07-93 05:54:00* Test Item Value Reference Range Interpretation Comments Cholesterol Level (test code = 2093-3) 201 0-199 H Less than 200 mg/dL Low Yisb943 - 239 mg/dL Borderline Qmbh765 m g/dl and greater High Risk [facility] UptownLDL Lpolvwcuoux7153-92-48 05:54:00* Test Item Value Reference Range Interpretation Comments LDL Cholesterol (test code = 2089-1) 104 60-130 [facility] UptownHDL Hjstbilhhhn9925-79-28 05:54:00* Test Item Value Reference Range Interpretation Comments HDL Cholesterol (test code = 2085-9) 80 40-60 H [facility]ptownCholesterol/HDL Czirg9607-70-51 05:54:00 * Test Item Value Reference Range Interpretation Comments Cholesterol/HDL Ratio (test code = 9830-1) 2.5 3.9-4.7 L [facility] UptownProthrombin Kgcy3113-28-01 05:50:00* Test Item Value Reference Range Interpretation Comments Prothrombin Time (test code = 5902-2) 12.7 11.9-14.5 [facility] UptownProthromb Time International Ratio 2018-10-19 05:50:00* Test Item Value Reference Range Interpretation Comments Prothromb Time International Ratio (test code = 6301-6) 0.91 Oral Anticoagulant Therapy INR Values:1. Low Intensity Therapy 1.5 - 2.02 . Moderate Intensity Therapy 2.0 - 3.03. High Intensity Therapy(1) 2.5 - 3. 54. High Intensity Therapy(2) 3.0 - 4.05. Panic Value INR > 5.0 [facility] UptownActivated Partial Thromboplast Time 2018-10-19 05:50:00* Test Item Value Reference Range Interpretation Comments Activated Partial Thromboplast Time (test code = 34551-8) 27.5 23.8-35.5 [facility] UptownWhite Blood Rhlfs6144-26-42 05:48:00* Test Item Value Reference Range Interpretation Comments White Blood Count (test code = 6690-2) 6.72 4.8-10.8 [facility] UptownRed Blood Hzymy8179-75-48 05:48:00* Test Item Value Reference Range Interpretation Comments Red Blood Count (test code = 789-8) 4.44 4.3-5.7 [facility] UptownHemoglobin2019-07-03 05:48:00* Test Item Value Reference Range Interpretation Comments Hemoglobin (test code = 25370-2) 13.7 14.0-18.0 L [facility] UptownHematocrit2019-07-03 05:48:00* Test Item Value Reference Range Interpretation Comments Hematocrit (test code = 4544-3) 39.9 38.2-49.6 [facility] UptownMean Corpuscular Pffyhx4924-94-27 05:48:00* Test Item Value Reference Range Interpretation Comments Mean Corpuscular Volume (test code = 787-2) 89.9 81-99 [facility] UptownMean Corpuscular Dxspxcjniw1366-62-09 05:48:00* Test Item Value Reference Range Interpretation Comments Mean Corpuscular Hemoglobin (test code = 785-6) 30.9 28-32 [facility] UptownMean Corpuscular Hemoglobin Concent 2018-10-19 05:48:00* Test Item Value Reference Range Interpretation Comments Mean Corpuscular Hemoglobin Concent (test code = 786-4) 34.3 31-35 [facility] UptownRed Cell Distribution Cehet2317-35-67 05:48:00* Test Item Value Reference Range Interpretation Comments Red Cell Distribution Width (test code = 41739-7) 12.9 11.7 -14.4 [facility] UptownPlatelet Swcxb3068-91-03 05:48:00* Test Item Value Reference Range Interpretation Comments Platelet Count (test code = 777-3) 219 140-360 [facility] UptownNeutrophils (%) (Auto)2018-10-19 05:48:00 * Test Item Value Reference Range Interpretation Comments Neutrophils (%) (Auto) (test code = 15311-2) 54.6 38.7-80.0 [facility] UptownLymphocytes (%) (Auto)2018-10-19 05:48:00 * Test Item Value Reference Range Interpretation Comments Lymphocytes (%) (Auto) (test code = 736-9) 30.2 18.0-39.1 [facility]ptownMonocytes (%) (Auto)2018-10-19 05:48:00* Test Item Value Reference Range Interpretation Comments Monocytes (%) (Auto) (test code = 5905-5) 9.7 4.4-11.3 [facility]ownEosinophils (%) (Auto)2018-10-19 05:48:00 * Test Item Value Reference Range Interpretation Comments Eosinophils (%) (Auto) (test code = 713-8) 3.9 0.0-6.0 [facility]ptownBasophils (%) (Auto)2018-10-19 05:48:00* Test Item Value Reference Range Interpretation Comments Basophils (%) (Auto) (test code = 706-2) 1.2 0.0-1.0 H [facility] UptownIM GRANULOCYTES %2018-10-19 05:48:00* Test Item Value Reference Range Interpretation Comments IM GRANULOCYTES % (test code = IM GRANULOCYTES %) 0.4 0.0- 1.0 [facility]ptownNeutrophils # (Auto)2018-10-19 05:48:00* Test Item Value Reference Range Interpretation Comments Neutrophils # (Auto) (test code = 751-8) 3.7 2.1-6.9 [facility]ptownLymphocytes # (Auto)2018-10-19 05:48:00* Test Item Value Reference Range Interpretation Comments Lymphocytes # (Auto) (test code = 44548-0) 2.0 1.0-3.2 [facility]ownMonocytes # (Auto)2018-10-19 05:48:00* Test Item Value Reference Range Interpretation Comments Monocytes # (Auto) (test code = 742-7) 0.7 0.2-0.8 [facility]ownEosinophils # (Auto)2018-10-19 05:48:00* Test Item Value Reference Range Interpretation Comments Eosinophils # (Auto) (test code = 711-2) 0.3 0.0-0.4 [facility]ownBasophils # (Auto)2018-10-19 05:48:00* Test Item Value Reference Range Interpretation Comments Basophils # (Auto) (test code = 704-7) 0.1 0.0-0.1 [facility] UptownAbsolute Immature Granulocyte (auto 2018-10-19 05:48:00* Test Item Value Reference Range Interpretation Comments Absolute Immature Granulocyte (auto (michi t code = Absolute Immature Granulocyte (auto) 0.03 0-0.1 [facility] UptownMRI BRAIN LL6766-98-56 10:38:00 [place] [address] Patient Name: DEVEN BLAS MR #: [id number] : 1955 Age/Sex: 63/M Req #: [id number] Adm Physician: ANCELMO HDEZ MD Ordered by: KADEN CLEMONS MD Report #: [id number] Location: [facility] Room/Bed: [facility]- Procedure: [id number] M RI/MRI BRAIN WO Exam Date: Exam Time: REPORT STATUS: Signed Exam: Brain MRI without IV contrast History: Stroke, TIA, difficulty speaking, right arm weakness. Comparison studies: Head CT 10/18/2018. Technique: Sagittal and axial T2 FS, axial DWI, axial T2*GRE, axial T1 FLAIR and axial coronal T2 FLAIR. Intr avenous contrast: None Findings: Scalp: Normal in signal. No masses. Bone marrow: Normal in signal intensity. Brain sulci: Appropriate for age. Ventricles: Normal in size. No hydrocephalus. Extra axial spaces: No mass, no fluid collection. Parenchyma: Small focal restricted diffusion with as sociated subtle increased T2 FLAIR hyperintensity in the left lateral frontal molina radiata compatible with acute ischemia. No mass or hemorrhage. A few sc attered small T2 FLAIR hyperintense foci in the supratentorial white matter ar e nonspecific but most compatible with chronic microvascular ischemic changes. Small chronic left cerebellar and left subinsular lacunar infarcts are unchan ged. Suprasellar region: No abnormalities. Craniocervical junction: Paten t foramen magnum. No Chiari malformation. Vessels: Normal flow-voids in the a rteries and sinuses. IMPRESSION: 1. Small focal nonhemorrhagic acute ischemia in the left lateral frontal molina radiata. 2. No other changes fr om the prior brain MRI of 04/24/2015. 3. Mild chronic microvascular ischemic ch anges with small chronic left cerebellar and left subinsular lacunar infarcts. Findings discussed with Dr. Clemons 01/19/1990 10/18/2018. Signed by: Roland Cortes M.D. on 10/18/2018 10:53 AM Dictated By: HEYDI CORTES MD 1053 Transcribed B y: NORBERT on 10/18/18 1053 COPY TO: KADEN CLEMONS MD Total Tpbtgugsi2926-69-66 08:23:00* Test Item Value Reference Range Interpretation Comments Total Bilirubin (test code = 1975-2) 0.4 0.2-1.2 [facility] UptownAspartate Amino Transf (AST/SGOT) 2018-10-18 08:23:00* Test Item Value Reference Range Interpretation Comments Aspartate Amino Transf (AST/SGOT) (test code = Aspartate Amino Transf (AST/SGOT)) 19 5-34 [facility] UptownAlanine Aminotransferase (ALT/SGPT) 2018-10-18 08:23:00* Test Item Value Reference Range Interpretation Comments Alanine Aminotransferase (ALT/SGPT) (test code = 1742-6) 19 0-55 [facility] UptownTotal Akmulhr0912-88-16 08:23:00* Test Item Value Reference Range Interpretation Comments Total Protein (test code = 2885-2) 6.3 6.5-8.1 L [facility] UptownAlbumin2019-07-02 08:23:00* Test Item Value Reference Range Interpretation Comments Albumin (test code = 1751-7) 3.7 3.5-5.0 [facility] UptownGlobulin2019-07-02 08:23:00* Test Item Value Reference Range Interpretation Comments Globulin (test code = 77646-7) 2.6 2.3-3.5 [facility] UptownAlbumin/Globulin Axflr5245-61-28 08:23:00 * Test Item Value Reference Range Interpretation Comments Albumin/Globulin Ratio (test code = 1759-0) 1.4 0.8-2.0 [facility] UptownAlkaline Gzvpwcgkxsl7855-78-07 08:23:00* Test Item Value Reference Range Interpretation Comments Alkaline Phosphatase (test code = 6768-6) 49 40-150 [facility] UptownCHEST SINGLE (PORTABLE)2018-10-18 07:49:00 [place] [address] Patient Name: DEVEN BLAS MR #: [id number] : 1955 Age/Sex: 63/M Req #: [id number] Adm Physician: Ordered by: SANJEEV SANTOS DO Report #: [id number] Location: ER Room/Bed: Procedure: [id number] DX/JACQUES ST SINGLE (PORTABLE) Exam Date: 10/18/18 Exam Time: 711 REPORT STATUS: Signed EXAM: CHEST SINGLE (PORTABLE), AP Portable DATE: 10/18/2018 Time stamp on exam: 7:15 AM INDICATION: Possible stroke COMPARISON: None FINDINGS: LINES/TUB ES: None LUNGS: No consolidations or edema. PLEURA: No effusions or p neumothorax. HEART AND MEDIASTINUM: Normal size and contour. BONES AND SOFT TISSUES: No acute findings. IMPRESSION: No acute thoracic abnormali ty. Signed by: Dr. Franklin Rosario DO on 10/18/2018 7:50 AM Di ctated By: FRANKLIN ROSARIO DO 9 COPY TO: SANJEEV SANTOS DO CT BRAIN [id number] 07:24:00 [place] [address] Patient Name: DEVEN BLAS MR #: [id number] : 1955 Age/Sex: 63/M Req #: [id number] Adm Physician: Ordered by: SANJEEV SANTOS DO Report #: [id number] Location: ER Room/Bed: Procedure: [id number] CT/CT BRAIN WO Exam Date: 10/18/18 Exam Time: 720 REPORT STATUS: Signed Exam: Head CT wit hout contrast History: Difficulty talking, unable to move right arm Compari son studies: No prior exams are available on the PACS at the time of comparis on. Technique: Axial images were obtained from the skull base to the vert ex. Coronal and sagittal images reconstructed from the axial data. Dose mod ulation, iterative reconstruction, and/or weight based adjustment of the mA/kV was utilized to reduce the radiation dose to as low as reasonably achievable. Radiation dose: Total DLP: 921 mGy*cm. Estimated effective dose: DLP x 0.015 Intravenous contrast: None Findings: Scalp: No abnormali ties. Bones: No fractures, blastic or lytic lesions. Brain sulci: Mildly prominent.. Ventricles: Normal in size and configuration. No hydrocephalus. Extra-axial spaces: No masses, no fluid collection. Parenchyma: No mass , acute hemorrhage or acute cortical vascular insults. A few scattered hypoden sities in the supratentorial white matter are nonspecific but most compatible with chronic small vessel ischemic changes. There are small chronic left helena sular and left mid cerebellar lacunar insults. Sellar/suprasellar region: No abnormalities. Craniocervical junction: Patent foramen magnum. No Chiari on e malformation. Incidental findings: Atherosclerotic calcifications in t he carotid siphons. IMPRESSION: No acute intracranial abnormalities. Specifically, no mass, acute hemorrhage or acute cortical infarct. [employer] Representative barbra findings: 1. Mild generalized volume loss. 2. Mild chronic microvascu lar ischemic changes with small chronic left subinsular and left cerebellar la cunar infarct. Signed by: Dr. Heydi Cortes M.D. on 10/18/2018 7:29 AM Dictated By: HEYDI CORTES MD 8 Transcribed By: NORBERT on 10/18/18728 COPY TO: SANJEEV SANTOS DO ANKLE BILATERAL HWKCBLMJ7758-69-03 09:26:00 [facility] [address] [place] [address] Patient Name: DEVEN BLAS MR #: [id number] : 1955 Age/Sex: 63/M Req #: [id number] Adm Physician: Ordered by: ANCELMO HDEZ MD Report #: [id number] Location: [facility] Room/Bed: Procedure: [id number] DX/A NKLE BILATERAL COMPLETE Exam Date: 09/15/18 Exam Kenneth e: 0832 REPORT STATUS: Signed Exam: Right foot radiographs-3 views; left foot radiographs-3 views; Right an kle radiographs - 3 views; left ankle radiographs - 3 views Clinical Histor y: Bilateral foot and ankle pain. Comparison: None. Findings: Righ t foot and ankle: No evidence of acute fracture or malalignment. The Lisfranc alignment is maintained. There are moderate degenerative changes at the first tarsometatarsal joint and scattered mild midfoot and interphalangeal joint d egenerative changes. Mild degenerative changes at the first metatarsophalangea l joint. Status post ORIF of the distal tibia with a partially visualized i ntramedullary ekaterina. There are 4 screws in distal tibia. The hardware appears gr ossly intact. The second from superior most screw extends into the medial boom in of the distal fibula with a small amount of lucency surrounding the tip of the screw likely related to chronic stress changes. There is a deformity of th e distal diaphyses of the fibula and tibia, consistent with prior trauma. The ankle mortise appears intact. Left foot and ankle: No evidence of acute fracture or malalignment in the foot or ankle. The Lisfranc alignment is main tained. The ankle mortise is preserved. There are moderate degenerative ch anges at the first tarsometatarsal joint and scattered mild midfoot and interp halangeal joint degenerative changes. Mild degenerative changes at the first m etatarsophalangeal joint. There is Achilles enthesopathy with patchy lytic and sclerotic changes in the posterior calcaneous at the Achilles attachment, likely reflecting chronic stress changes. There is indeterminant well-c ircumscribed medullary sclerosis within the distal tibia with internal somewha t rounded lucency. Superiorly, there is a small round area of lucency. There i s some cortical thickening in the distal fibula, suggestive of prior trauma. Impression: No evidence of fracture or malalignment. There is indete rminant well-circumscribed medullary sclerosis within the distal left tibia wi th internal lucency. Suggest correlation for prior trauma. This may represent an area of prior fixation hardware. MRI of the distal tibia/ankle may be consi dered for further evaluation. Left Achilles enthesopathy with likely chron ic stress-related changes in the posterior calcaneus at the Achilles attachmen t. If there are symptoms attributable to this location, MRI of the hindfoot ma y be considered. 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 Post surgical changes of the right distal tibia as above. Signed by: Dr. Earl Reeves MD on 09/15/2018 10:06 AM Dictated By: EARL REEVES MD Mary Lou ctronically Signed By: EARL REEVES MD on 09/15/18 1006 Transcribed By: NORBERT jack 09/15/18 1006 COPY TO: ANCELMO HDEZ MD FOOT COMPLETE [id number] 09:26:00 [place] [address] Patient Name: DEVEN BLAS MR #: [id number] : 1955 Age/Sex: 63/M Req #: [id number] Adm Physician: Ordered by: ANCELMO HDEZ MD Report #: [id number] Location: [facility] Room/Bed: Procedure: [id number] DX/F OOT COMPLETE BILATERAL Exam Date: 09/15/18 Exam Time : 0832 REPORT STATUS: Signed Exam: Right foot radiographs-3 views; left foot radiographs-3 views; Right ank le radiographs - 3 views; left ankle radiographs - 3 views Clinical History : Bilateral foot and ankle pain. Comparison: None. Findings: Right foot and ankle: No evidence of acute fracture or malalignment. The Lisfranc a lignment is maintained. There are moderate degenerative changes at the first tarsometatarsal joint and scattered mild midfoot and interphalangeal joint de generative changes. Mild degenerative changes at the first metatarsophalangeal joint. Status post ORIF of the distal tibia with a partially visualized in tramedullary ekaterina. There are 4 screws in distal tibia. The hardware appears glen ssly intact. The second from superior most screw extends into the medial olivia n of the distal fibula with a small amount of lucency surrounding the tip of t he screw likely related to chronic stress changes. There is a deformity of the distal diaphyses of the fibula and tibia, consistent with prior trauma. The a nkle mortise appears intact. Left foot and ankle: No evidence of acute fracture or malalignment in the foot or ankle. The Lisfranc alignment is maint ained. The ankle mortise is preserved. There are moderate degenerative kaden nges at the first tarsometatarsal joint and scattered mild midfoot and interph alangeal joint degenerative changes. Mild degenerative changes at the first me tatarsophalangeal joint. There is Achilles enthesopathy with patchy lytic and sclerotic changes in the posterior calcaneous at the Achilles attachment, likely reflecting chronic stress changes. There is indeterminant well-ci rcumscribed medullary sclerosis within the distal tibia with internal somewhat rounded lucency. Superiorly, there is a small round area of lucency. There is some cortical thickening in the distal fibula, suggestive of prior trauma. Impression: No evidence of fracture or malalignment. There is indeter minant well-circumscribed medullary sclerosis within the distal left tibia wit h internal lucency. Suggest correlation for prior trauma. This may represent a n area of prior fixation hardware. MRI of the distal tibia/ankle may be consid ered for further evaluation. Left Achilles enthesopathy with likely chroni c stress-related changes in the posterior calcaneus at the Achilles attachment . If there are symptoms attributable to this location, MRI of the hindfoot may be considered. 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 Post surgical changes of the right distal tibia as above. Signed by: Dr. Earl Reeves MD on 09/15/2018 10:06 AM Dictated By: EARL REEVES MD Elec tronically Signed By: EARL REEVES MD on 09/15/18 1006 Transcribed By: NORBERT on 09/15/18 1006 COPY TO: ANCELMO HDEZ MD MRI SPINE CERVICAL WO 2018-06-22 15:23:00 [place] [address] Patient Name: DEVEN BLAS MR #: [id number] : 1955 Age/Sex: 62/M Req #: [id number] Adm Physician: Ordered by: ANCELMO HDEZ MD Report #: [id number] Location: MRI Room/Bed: Procedure: [id number] MRI/ MRI SPINE CERVICAL WO Exam Date: Exam Time: REPORT STATUS: Signed MRI SPINE CERVIC AL WO HISTORY: Neck pain COMPARISON: Cervical spine radiographs 019 TECHNIQUE: Sagittal T1, sagittal T2, sagittal inversion recovery, axial T2, axial GRE, and axial T1 weighted MR images of the cervical spine were obt ained without intravenous contrast. DISCUSSION: Alignment: Straighte michael of the cervical lordosis. No scoliosis. Vertebrae: The C5 and C6 vertebr al bodies are fused. No definite evidence for fractures, or neoplasm. Small no dular T1 hyperintense lesions in the T1, T2, and T3 vertebral bodies are likel y benign hemangiomas. Cervicomedullary junction: No abnormalities. Spinal co rd: The ventral cord is mildly indented by disc at C4-C5. The cord is otherwis e normal in signal and morphology from the foramen magnum through T3-T4. Sof t tissues: No signal abnormalities. Mild to moderate disc degeneration abov e and below the fused level is most prominent at C4-C5 and C6-C7. There are no nspecific minimal inflammatory endplate changes at C4-C5 and C6-C7. These find ings are superimposed on a congenitally narrow lumbar spinal canal. C2-C3 : Mild left foraminal stenosis due to uncovertebral and facet arthrosis. No si gnificant canal or right foraminal stenosis. C3-C4: Mild to moderate canal stenosis due to posterior disc osteophyte complex and ligamentum flavum thicke michael. Moderate to severe right and moderate left foraminal stenoses due to unc overtebral and facet arthrosis. There is mild periarticular edema along the ri ght C3-C4 facet joint. C4-C5: Moderate canal stenosis due to right posterio r disc osteophyte complex and ligamentum flavum thickening. Severe bilateral f oraminal stenoses due to uncovertebral and facet arthrosis C5-C6: Fusion level without significant canal stenosis. Mild to moderate right and mild left foraminal stenoses due to uncovertebral and facet arthrosis. C6-C7: Mild c anal stenosis due to posterior disc osteophyte complex and ligamentum flavum t hickening. Moderate bilateral foraminal stenoses due to uncovertebral and face t arthrosis. C7-T1: Moderate to severe right and mild left foraminal stenos es due to posterior disc osteophyte complex and facet arthrosis. No significan t canal stenosis. There is prominent right-sided facet arthrosis with periarti cular edema. IMPRESSION: 1. Mild to moderate multilevel disc degen eration, most prominent at C4-C5 and C6-C7 (with nonspecific minimal inflammat ory endplate changes at these levels). The C5 and C6 vertebral bodies are fuse d. These findings are superimposed on a congenitally narrow lumbar spinal elijah l. 2. 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 3. Multilevel moderate to severe bilateral degenerative foraminal stenoses as described above. 4. Prominent right C7-T1 facet arthrosis with facet synov itis. Possible mild right C3-C4 facet synovitis Signed by: Dr. Ronny Carrillo M.D. on 06/22/2018 3:38 PM Dictated By: RONNY Shearer ically Signed By: RONNY LILLY MD on 06/22/181537 Transcribed By: NORBERT on 06/22/181537 COPY TO: ANCELMO HDEZ MD CERVICAL SPINE 4 OR 5 [id number] 13:36:00 [place] [address] Patient Name: DEVEN BLAS MR #: [id number] : 1955 Age/Sex: 62/M Req #: [id number] Adm Physician: Ordered by: ANCELMO HDEZ MD Report #: [id number] Location: [facility] Room/Bed: Procedure: [id number] DX/C ERVICAL SPINE 4 OR 5 VIEWS Exam Date: 06/20/18 Exam Time: 1305 REPORT STATUS: Signed Exam: Cervical spine complete History: Neck pain Comparison: Non e. Findings: The cervical spine is visualized from the skull base to t he bottom of T1 on the lateral radiograph. No acute, displaced fracture or sub luxation. Soft tissue, ligamentous, and spinal cord abnormalities cannot be ex cluded on the basis of plain radiography. Osseous fusion of the C5 and C6 vertebral bodies. C4-C5 and C6-C7 disc space narrowing, endplate sclerosis, a nd marginal disc osteophyte complexes. Remaining intervertebral disc spaces ar e comparatively well-maintained. Atlantoaxial interval is within normal limits . Prevertebral soft tissues are of normal thickness. Mild bilateral narrowing of the C4-5 foramina is suspected on the oblique radiographs. Neural foramina are otherwise patent as seen on the oblique radiographs. Partially visual ized lung apices are well aerated. Impression: No acute osseous abnorm alities. Osseous fusion of the C5 and C6 vertebral bodies with moderate deg enerative disc disease of C4-5 and C6-7. Mild bilateral C4-[address] enosis may be further evaluated by MRI of the cervical spine there is clinical concern for radiculopathy. Signed by: Dr. Heydi Mckeon M.D. on 06/20/2018 1:39 PM Dictated By: HEYDI MCKEON MD 1334 Transcribed By: NORBERT on 06/20/18 1335 COPY TO: ANCELMO HDEZ MD
[2019-11-23] MEDS ORDERED: FENTANYL CITRATE/PF 100MCG/2 ML INJ ONE ×2 (10:25→19:42)
[2019-11-23] MEDS ORDERED: SEVOFLURANE INHAL SOLN 250 ML PEN BTL ONE (10:48)
[2019-11-23] MEDS ORDERED: NEOSTIGMINE 1 MG/ML 10ML VIAL ONE (10:48)
[2019-11-23] MEDS ORDERED: ETOMIDATE 40 MG/ 20ML VIAL IV ONE (10:48)
[2019-11-23] MEDS ORDERED: DEXAMETHASONE 10MG/ML PF INJ ONE (10:48)
[2019-11-23] MEDS ORDERED: LIDOCAINE HCL 2% JELLY 5 ML TUBE ONE (10:48)
[2019-11-23] MEDS ORDERED: PROPOFOL IV EMULSION 10 MG/ML 20 ML VIAL ONE (10:48)
[2019-11-23] MEDS ORDERED: GLYCOPYRROLATE 0.2 MG/ML VIAL ONE (10:48)
[2019-11-23] MEDS ORDERED: ROCURONIUM BROMIDE 10 MG/ML 5ML VIAL IV ONE (10:48)
[2019-11-23 11:38] VITALS: BP 124/92
--- NOTE | 2019-11-23 12:38 | Operative Report ---
DATE OF PROCEDURE: 11/23/2019 SURGEON: Jeromy Mae MD PREOPERATIVE DIAGNOSIS: C4-C5 spondylosis above the level of previous C5-C6 fusion with radiculopathy, M50.121. POSTOPERATIVE DIAGNOSIS: C4-C5 spondylosis above the level of previous C5-C6 fusion with radiculopathy, M50.121. PROCEDURES: 1. C4-C5 anterior cervical diskectomy and microsurgical osteophyte resection and allograft fusion, 59408. 2. Preparation of MTF corticocancellous allograft, 62424. 3. C4-C5 anterior cervical plating with Synthes ZPN plate, 71233. ANESTHESIA: General. INDICATIONS: The patient is a 64-year-old man, who presents with C4-C5 spondylosis and a large disk osteophyte complex eccentric to the right sigmoid symptomatic with neck pain and right C5 radiculopathy. This is above the level of the previous noninstrumented C5-C6 fusion. He was taken to the surgery for anterior cervical decompression and fusion at C4-C5. PROCEDURE IN DETAIL: After induction of general anesthesia, the patient was placed on the operating table in supine position. The right side of neck was prepped and draped in sterile fashion. The fluoroscopic C-arm was positioned in cross-table lateral orientation. A small transverse incision was created on the right side of neck at the level of the C4-C5 disk space as determined by fluoroscopy. The platysma was divided in line with the incision. A subplatysmal dissection was carried out and avascular plane of dissection was developed medially. Sternocleidomastoid muscle was followed medial to the carotid sheath to the anterior border of cervical spine. The deep cervical fascia was opened. The esophagus was retracted to the left. The attachments of longus colli muscles to the anterolateral aspects of vertebral bodies of C4 and C5 were divided. The anterior longitudinal ligament was resected. [place] posts were inserted into C4 and C5. The [place] distractor was used to distract the disk space. The anterior annulus of the disk was incised with a #11 blade and the contents of the disks were thoroughly evacuated with curettes and pituitary rongeurs. The posterior osteophytes were meticulously drilled with a 2 mm cutting bur on a high-speed drill until they were completely removed. The posterior annulus of the disk, herniated disk material, and the posterior longitudinal ligament were resected layer by layer until the dura was fully exposed and decompressed. The medial aspects of the uncinate processes were resected bilaterally to further expose any compressed origins of the corresponding nerve roots. After satisfactory decompression had been achieved, the endplates were prepared for fusion. The disk space was upsized and found to be 9 mm in height. A piece of MTF corticocancellous allograft measuring 9 mm in height was selected and prepared in saline and loaded onto a Synthes ZPN plate. The construct was inserted into the disk space under distraction and fluoroscopic guidance, and tamped in place until the anterior margin of the plate was flushed with anterior margin of the vertebral bodies. The plate was then screwed to the endplates of C5 and C6 with two pairs of 14 mm screws. All screw holes were drilled and tapped on the lateral fluoroscopic guidance. All screws were locked with the appropriate locking screws. An excellent construct was obtained. The wound was copiously irrigated with bacitracin solution. Meticulous hemostasis was secured. Retraction was removed. The platysma was closed with 3-0 Vicryl sutures. The skin was closed with 4-0 Monocryl sutures in subcuticular fashion. Steri-Strips and dressing were applied. The patient was awakened, extubated, and taken to postanesthesia care in stable condition. No intraoperative complications were encountered. Estimated blood loss was 20 mL. Jeromy Mae MD PP/MODL /[id number]
--- NOTE | 2019-11-23 13:00 | NUR ---
Patient arrived from PACU at 1125. Patient ambulated to bed from stretcher. Patient was oriented to room, procedures, and plan. Patient was assessed. Patient has a patent IV in the right hand 20 g. Patient is tolerating PO so the IV fluids were discontinued. Patient has steri-strips in place and a neck collar on. Patient has SCDs in place as well. Patient c/o of pain in the neck 5 out of 10, patient was given morphine and stated pain was better. Patient plan is to discharge home tomorrow along with removing the dressing tomorrow. Patient had no other issues or complaints at this time. Will continue to monitor and follow doctor's orders.
[2019-11-23 13:10] VITALS: BP 124/92
[2019-11-23] MEDS ORDERED: SODIUM CHLORIDE 0.9% 50ML 50 ML ONE (13:57)
[2019-11-23] MEDS: CEFAZOLIN SOD 1 GM/NS 50ML 50 ML IV SCH ×2 (14:26→22:18)
[2019-11-23] MEDS ORDERED: MORPHINE SULFATE INJ 4 MG/ML INJ 1ML IM PRN (14:45)
[2019-11-23 15:17] VITALS: BP 132/97
--- NOTE | 2019-11-23 19:00 | NUR ---
RECEIVED PATIENT IN BEDSIDE SHIFT REPORT. PATIENT RESTING IN BED AT THIS TIME. JENNIFER HOSE AND SCDS ON. DRESSING TO ANTERIOR NECK C/D/I, SOFT COLLAR ON. PAIN 06/26 AT THIS TIME, RECENTLY MEDICATED. NO S&S OF DISTRESS NOTED. BED LOCKED IN LOWEST POSITION, SIDE RAILS UPX2, CALL LIGHT IN REACH.
[2019-11-23] MEDS ORDERED: MIDAZOLAM HCL 2 MG/2 ML VIAL ONE (19:42)
[2019-11-23 20:00] VITALS: BP 128/94
[2019-11-23] MEDS ORDERED: ZOLPIDEM TARTRATE 5 MG TAB PO PRN (21:00)
[2019-11-23 23:45] VITALS: BP 128/94
[2019-11-24] VITALS: BP 136/94
[2019-11-24 04:00] VITALS: BP 128/94
[2019-11-24] MEDS: CEFAZOLIN SOD 1 GM/NS 50ML 50 ML IV SCH (05:42)
--- NOTE | 2019-11-24 07:23 | NUR ---
Bedside rounds complete with Ellen Simmons RN. Patient sitting upright in bed, no c/o pain at this time. Pain is 5/10 and states that is tolerable. Patient will discharge at 0900 this morning.
[2019-11-24 08:00] VITALS: BP 135/96
[2019-11-24 08:46] VITALS: BP 135/96
[2019-11-24] MEDS ORDERED: VALSARTAN 160 MG TAB PO SCH (09:00)
[2019-11-24] MEDS ORDERED: HYDROCHLOROTHIAZIDE 25 MG TAB PO SCH (09:00)
[2019-11-24] MEDS ORDERED: NORCO 7.5-3251 EACH PO (10:09)
--- NOTE | 2019-11-24 10:38 | NUR ---
Patient given written and oral discharge instructions and verbalized understanding of all instructions, patient give RX for [place] and explained when to take medication. The PIV was removed with no issues and the patient was placed in a wheel chair and taken to his car where his was waiting to drive him home.
== END 2019-11-24 10:39 | disposition home or self-care (01) ==
LOC: OR 05:15 → PACU V 08:51 → MED/SURG 11:26
PROVIDERS: ADMIT Neurological Surgery; ATTEND Neurological Surgery
DX: M50.121 Cervical disc disorder at C4-C5 level with radiculopathy (principal); I10 Essential (primary) hypertension; E78.5 Hyperlipidemia, unspecified; Z86.19 Personal history of other infectious and parasitic diseases; Z11.59 Encounter for screening for other viral diseases; Z01.810 Encounter for preprocedural cardiovascular examination; Z01.812 Encounter for preprocedural laboratory examination; Z01.818 Encounter for other preprocedural examination
CPT/HCPCS: 20931; 22551; 22845; 36415; 71046; 80048; 85025; 85610; 85730; 86850; 86900; 88304; 93005; C1713 ×2; C9359; G0378 ×2; J0131; J0690 ×2; J2001; J2250; J2270; J2704; J2710; J3010; U0002; 77003

== ENCOUNTER → 2019-12-21 | Outpatient (CLI) | payer MEDICARE, BC, OTHER ==
[~2019-12-21] MED LIST changes: +HYDROCHLOROTHIA25 MG PO; +NORCO 7.5-3251 EACH PO
--- NOTE | 2019-12-21 08:49 | Diagnostic Imaging Report ---
Cervical spine, 4 views. History: Postop. Discussion: The cervical spine is visualized on the lateral view from C1 through the top of T1. There is normal lordotic curvature. There is no evidence of acute fracture, subluxation, or posterior splaying. C4-C5 anterior discectomy and fusion device are present in anatomic alignment. C5-C6 solid interbody fusion is also present. Severe disc space narrowing is present at C6-C7 with osteophytosis. Flexion and extension views were obtained demonstrating no evidence of subluxation. The prevertebral soft tissues are within normal limits. IMPRESSION: Status post C4-C5 ACDF without evidence of instability on flexion-extension views. Signed by: Mitch Ortiz on 12/21/2019 8:45 AM
== END ==
LOC: RAD 06:58
PROVIDERS: ATTEND Neurological Surgery
DX: M50.20 Other cervical disc displacement, unspecified cervical region (principal); M43.22 Fusion of spine, cervical region
CPT/HCPCS: 72050

== ENCOUNTER → 2020-08-02 | Outpatient (CLI) | payer MEDICARE, BC | LOC: RAD 11:18 | PROVIDERS: ATTEND Neurological Surgery | DX: M50.20 Other cervical disc displacement, unspecified cervical region (principal); M43.22 Fusion of spine, cervical region | CPT/HCPCS: 72050 ==

== ENCOUNTER → 2023-11-11 | Day surgery (SDC) | payer MEDICARE, BC ==
[2023-11-05 13:12] LABS: HEMOGLOBIN 13.8 g/dL (14.0-18.0); RED BLOOD COUNT 4.36 x10e6/uL (4.3-5.7); WHITE BLOOD COUNT 4.85 x10e3/uL (4.8-10.8)
[2023-11-05 13:13] LABS: BASOPHILS % 1.4 % (0.0-1.0); EOSINOPHILS % 3.3 % (0.0-6.0); HEMATOCRIT 39.5 % (38.2-49.6); LYMPHOCYTES % 34.2 % (18.0-39.1); MEAN CORPUSCULAR HEMOGLOBIN 31.7 pg (28-32); MEAN CORPUSCULAR HGB CONC 34.9 g/dL (31-35); MEAN CORPUSCULAR VOLUME 90.6 fL (81-99); MONOCYTES % 9.7 % (4.4-11.3); NEUTROPHILS # (AUTO) 2.5 (2.1-6.9); NEUTROPHILS % 51.2 % (38.7-80.0); PLATELET COUNT 157 x10e3/uL (140-360); RED CELL DISTRIBUTION WIDTH 12.2 % (11.7-14.4)
[2023-11-05 13:14] LABS: BASOPHILS # (AUTO) 0.1 (0.0-0.1); EOSINOPHILS # (AUTO) 0.2 (0.0-0.4); LYMPHOCYTES # (AUTO) 1.7 (1.0-3.2); MONOCYTES # (AUTO) 0.5 (0.2-0.8)
[~2023-11-11] MED LIST changes: +AMLODIPINE BESYL5 MG PO; +CARVEDILOL12.5 MG PO; +COQ1050 MG PO; +DOXAZOSIN MESYLA2 MG PO; +FENTANYL CITRATE/PF 100MCG/2 ML INJ ONE; +LIDOCAINE HCL 2% LOCAL INJ 5 ML SDV VIAL INJ ONE; +METOCLOPRAMIDE HCL 10 MG/2ML VIAL ONE; +MIDAZOLAM HCL 2 MG/2 ML VIAL ONE; +PROPOFOL IV EMULSION 10 MG/ML 20 ML VIAL ONE; +PROTONIX20 MG PO; +VITAMIN B COMP1 EACH PO
[2023-11-11 12:07] VITALS: TEMP 97.9
[2023-11-11 12:35] VITALS: BP 118/85; PULSE 60; RESP 16; O2SAT 95
== END | disposition home or self-care (01) ==
LOC: OR 13:46
PROVIDERS: ATTEND Internal Medicine Gastroenterology
DX: C88.4 Extranodal marginal zone B-cell lymphoma of mucosa-associated lymphoid tissue [MALT-lymphoma] (principal); K29.70 Gastritis, unspecified, without bleeding; Z86.19 Personal history of other infectious and parasitic diseases; K20.90 Esophagitis, unspecified without bleeding; K31.89 Other diseases of stomach and duodenum; K63.5 Polyp of colon; I10 Essential (primary) hypertension; K75.9 Inflammatory liver disease, unspecified; Z01.810 Encounter for preprocedural cardiovascular examination; Z01.812 Encounter for preprocedural laboratory examination; Z79.899 Other long term (current) drug therapy
CPT/HCPCS: 36415; 43239; 85025; 93005; J2001; J2250; J2470; J2704; J2765; J3010

== ENCOUNTER → 2024-05-06 | Day surgery (SDC) | payer MEDICARE, BC ==
[2024-05-03 09:27] LABS: BASOPHILS # (AUTO) 0.1 (0.0-0.1); BASOPHILS % 1.5 % (0.0-1.0); EOSINOPHILS # (AUTO) 0.2 (0.0-0.4); HEMATOCRIT 41.2 % (38.2-49.6); HEMOGLOBIN 13.7 g/dL (14.0-18.0); LYMPHOCYTES % 24.1 % (18.0-39.1); MEAN CORPUSCULAR HEMOGLOBIN 32.3 pg (28-32); MEAN CORPUSCULAR HGB CONC 33.3 g/dL (31-35); MEAN CORPUSCULAR VOLUME 97.2 fL (81-99); MONOCYTES # (AUTO) 0.5 (0.2-0.8); MONOCYTES % 12.2 % (4.4-11.3); NEUTROPHILS # (AUTO) 2.3 (2.1-6.9); PLATELET COUNT 144 x10e3/uL (140-360); RED BLOOD COUNT 4.24 x10e6/uL (4.3-5.7); RED CELL DISTRIBUTION WIDTH 11.7 % (11.7-14.4); WHITE BLOOD COUNT 4.02 x10e3/uL (4.8-10.8)
[~2024-05-06] MED LIST changes: +KETAMINE 50MG/5ML SYR ONE; +LACTATED RINGER'S 1,000 ML ONE; -METOCLOPRAMIDE HCL 10 MG/2ML VIAL ONE; -MIDAZOLAM HCL 2 MG/2 ML VIAL ONE; +VITAMIN E400 UNI1 PO
[2024-05-06 07:57] VITALS: TEMP 97
[2024-05-06 08:30] VITALS: BP 126/89; PULSE 68; RESP 18; O2SAT 99
== END | disposition home or self-care (01) ==
LOC: OR 06:00
PROVIDERS: ATTEND Internal Medicine Gastroenterology
DX: Z08 Encounter for follow-up examination after completed treatment for malignant neoplasm (principal); Z85.79 Personal history of other malignant neoplasms of lymphoid, hematopoietic and related tissues; K29.50 Unspecified chronic gastritis without bleeding; K31.A11 Gastric intestinal metaplasia without dysplasia, involving the antrum; K31.89 Other diseases of stomach and duodenum; K20.90 Esophagitis, unspecified without bleeding; K44.9 Diaphragmatic hernia without obstruction or gangrene; K63.5 Polyp of colon; I10 Essential (primary) hypertension; Z01.810 Encounter for preprocedural cardiovascular examination; Z01.812 Encounter for preprocedural laboratory examination; Z79.899 Other long term (current) drug therapy; Z92.3 Personal history of irradiation
CPT/HCPCS: 36415; 43239; 85025; 88305; 88342; 93005; J2003; J2470; J2704; J3010; J7121; 88312